=== PATIENT | female | born 1985 | race Caucasian/White ===

== ENCOUNTER → 2018-07-20 | Outpatient (CLI) | payer OTHER ==
[~2018-07-20] MED LIST: CONRAY-43 43% 50ML VIAL (Q9960) As Ordered ONE; PROHANCE 279.3MG/ML 5ML VIAL (A9576) As Ordered ONE
--- NOTE | 2018-07-20 16:15 | REP ---
MR ARTHROGRAM LEFT SHOULDER: TECHNIQUE: Axial T2 fat sat, gradient echo, sagittal oblique T2 fat sat, coronal oblique T1, T2 fat sat. Supraspinatus tendon demonstrates mild ill-defined high signal compatible with mild tendinopathy. No rotator cuff tendon tear is seen. Acromioclavicular joint does not demonstrate significant hypertrophic change. Acromion is type 2. Biceps tendon is within the bicipital groove with no tenosynovitis. There is no Hill Sachs deformity. The deltoid muscle demonstrates no abnormal signal. Biceps labral complex is intact. There is a tear of the posterior labrum diffusely. Other portions of the labrum appear intact. There is no occult fracture. There is a normal amount of joint fluid. No paralabral cyst is seen. IMPRESSION: Mild supraspinatus tendinopathy without evidence of a rotator cuff tendon tear. Diffuse tear of the posterior labrum. Electronically Signed by Joseph Love MD 07/24/2018 04:57 P
--- NOTE | 2018-07-21 09:03 | REP ---
Reason For Exam/Comment: Left shoulder pain Procedure: Left shoulder MRI arthrogram The procedure was performed by SARAVANAN Garvey, under the direct supervision of Dr. Love. The benefits and risks including but not limited to pain, infection, bleeding and anaphylaxis were explained to the patient and informed consent was obtained both verbally and written. Directly prior to the start of the procedure, a formal timeout was completed in the procedure room. Technique: The left glenohumeral joint was localized using fluoroscopic guidance. The skin was prepped and draped in the usual sterile fashion. 1 mL of 1% lidocaine was used as a local anesthetic. Using fluoroscopic guidance a 22-gauge spinal needle was inserted and advanced to the left glenohumeral joint space . 1 mL of Conray 43 was injected to verify needle placement. 12 mL of a solution containing 20 ml of sterile saline and a 0.15 ml of ProHance was injected into the joint. The needle was removed and the patient was taken MRI for post procedural imaging. The patient tolerated the procedure well and there were no immediate complications. 0.1 minutes of fluoroscopy time was utilized for this procedure. Reviewed by SARAVANAN Mora 07/20/2018 09:32 A Electronically Signed by Joseph Love MD 07/21/2018 08:54 A
== END ==
LOC: M RADPRO 06:32
PROVIDERS: ATTEND Physician Assistant
DX: M75.92 Shoulder lesion, unspecified, left shoulder (principal); M25.512 Pain in left shoulder
CPT/HCPCS: 23350; 73223; 77002; A9576; Q9960